=== PATIENT | male | born 1935 | race Caucasian/White ===

== ENCOUNTER → 2024-07-13 10:45 | Outpatient (CLI) | payer MEDICARE, OTHER, SELFPAY ==
--- NOTE | 2024-07-13 10:46 | DI.ECHO.S_ITS ---
[place] [facility]---------+ [facility] : : [id number] : : [place] : : [id number] : : Phone: [phone] Echocardiogram Report + + :Name: SHOSHANA ABREU Study Date: 07/13/2024 Height: 70.5 in: :[facility] ReadingLocation: Weight: 250 lb : : Gender: Male BSA: 2.3 m2 : :: 1935 Age: 89 yrs BP: 151/81 mmHg: :Reason For Study: NOCTURNAL HYPOXEMIA : :Ordering Physician: SYDNIE, : :KIZZY Performed By: Kathy Oviedo : :Referring: KIZZY OTOOLE : + + Interpretation Summary The left ventricle is normal in size and wall thickness. The left ventricular ejection fraction is normal. The ejection fraction is estimated to be 60-65%. The right ventricle is normal in size and function. The peak aortic velocity is 2.6 m/sec. The aortic valve mean gradient is 16 mmHg. The calculated aortic valve area is 1.3 cm2. There is mild to moderate aortic stenosis. The IVC is of normal diameter and collapses greater than 50% with a sniff. This suggests a low right atrial pressure of 3 mm Hg. Procedure: A two-dimensional transthoracic echocardiogram with color flow and Doppler was performed. The study quality was technically adequate. Comparison is made with the echocardiogram of 03/15/2022. The patient was in sinus rhythm with heart rates between 57-63 bpm during the exam. Left Ventricle: The left ventricle is normal in size and wall thickness. There is no thrombus. The ejection fraction is estimated to be 60-65%. The left ventricular ejection fraction is normal. There are no obvious focal wall motion abnormalities noted but poor endocardial definition reduces the sensitivity for the detection of such. MV E/A: 1.0 Med Peak E' Ruben: 6.9 cm/sec E/E' med: 10.8. Right Ventricle: The right ventricle is normal in size and function. Atria: The left atrial size is normal. Right atrial size is normal. There is no Doppler evidence for an interatrial shunt. Mitral Valve: There is mild mitral annular calcification. There is trace mitral regurgitation. Aortic Valve: The aortic valve is mildly calcified. The aortic valve is not well visualized. The peak aortic velocity is 2.6 m/sec. The aortic valve mean gradient is 16 mmHg. The calculated aortic valve area is 1.3 cm2. There is mild to moderate aortic stenosis. No aortic regurgitation is present. Tricuspid Valve: The tricuspid valve is normal in structure and function. There is trace tricuspid regurgitation. The right ventricular systolic pressure is estimated to be at least 26 mmHg based on an estimated right atrial pressure of 3 mm Hg. Pulmonic Valve: The pulmonic valve is not well visualized. There is no pulmonic valvular regurgitation. Great Vessels: The aortic root is normal size. The ascending aorta is mildly enlarged. The IVC is of normal diameter and collapses greater than 50% with a sniff. This suggests a low right atrial pressure of 3 mm Hg. Pericardium/ Pleura There is no pericardial effusion. There is no pleural effusion. MMode/2D Measurements & Calculations LVIDd: 5.7 cm LVOT diam: 2.1 cm LVIDs: 3.6 cm Ao root diam: 3.6 cm FS: 36.8 % asc Aorta Diam: 4.1 cm IVSd: 0.87 cm Ao Arch Diam (Prox Trans): 3.1 cm LVPWd: 0.87 cm LV cruz. diameter/BSA (cm/m^2): 2.5 LV sys. diameter/BSA (cm/m^2): 1.6 LA A2 area: 24.3 cm2 RA long axis: 5.1 cm LA A4 area: 17.9 cm2 RA area: 18.8 cm2 LA length (vol): 5.6 cm RA vol: 58.7 ml LA vol: 66.3 ml RA : 25.4 ml/m2 LA vol index: 28.7 ml/m2 IVC diam: 1.4 cm RVD1 (basal): 3.7 cm TAPSE: 2.7 cm Doppler Measurements & Calculations Ao V2 max: 260.7 cm/sec LVOT Max Ruben: 101.6 cm/sec Ao V2 mean: 183.3 cm/sec LV V1 max P.1 mmHg Ao max P.4 mmHg LV V1 VTI: 19.6 cm Ao mean P.5 mmHg CHARISSE(I,D): 1.2 cm2 Ao V2 VTI: 54.4 cm CHARISSE(V,D): 1.3 cm2 sev ratio: 0.36 CHARISSE indexed to BSA (cm^2/m^2): 0.53 MV E max ruben: 74.8 cm/sec TR max ruben: 238.2 cm/sec MV A max ruben: 74.8 cm/sec TR max P.7 mmHg MV E/A: 1.0 PA V2 max: 113.2 cm/sec Med Peak E' Ruben: 6.9 cm/sec PA V2 mean: 78.2 cm/sec E/E' med: 10.8 PA mean P.7 mmHg Lat Peak E' Ruben: 9.5 cm/sec PA pr(Accel): 48.2 mmHg E/E' lat: 7.9 E/e' average: 9.4 MV dec time: 0.25 sec SV(LVOT): 66.6 ml Reading Physician:02:19 PM
== END ==
LOC: ECHO 10:45
PROVIDERS: PCP Internal Medicine; Referring Provider Student in an Organized Health Care Education/Training Program; Visit Provider Student in an Organized Health Care Education/Training Program
DX: J96.20 Acute and chronic respiratory failure, unspecified whether with hypoxia or hypercapnia (principal); I34.81 Nonrheumatic mitral (valve) annulus calcification; I35.0 Nonrheumatic aortic (valve) stenosis; I77.89 Other specified disorders of arteries and arterioles
CPT/HCPCS: 93306